=== PATIENT | male | born 2000 | race African-American/Black ===

== ENCOUNTER 2022-11-12 21:31 | Emergency (ER) | payer BC ==
[~2022-11-12] VITALS: Ht 182.9 cm; Wt 91.0 kg
[2022-11-12 21:48] VITALS: O2SAT 98
[2022-11-12 22:52] LABS: BASOPHILS % 0.9 % (0.0-2.0); EOSINOPHILS % 2.6 % (0.0-5.0); HEMATOCRIT. 47.8 % (42.0-52.0); HEMOGLOBIN. 16.1 g/dL (14.0-18.0); LYMPHOCYTES % 43.9 % (20.0-50.0); MEAN CORPUSCULAR HEMOGLOBIN 29.5 pg (28.0-32.0); MEAN CORPUSCULAR HGB CONC 33.6 g/dL (31.0-37.0); MEAN PLATELET VOLUME 8.7 fl (7.4-10.4); MONOCYTES % 10.5 % (2.0-8.0); NEUTROPHILS % 42.1 % (40.0-76.0); PLATELET 268 x1000/uL (130-400); RED BLOOD CELL COUNT 5.44 mill/uL (4.7-6.1); RED CELL DISTRIBUTION WIDTH 13.9 % (11.6-14.6); WHITE BLOOD COUNT 6.6 x1000/uL (4.5-11.0)
[2022-11-12 23:02] LABS: CALCIUM 8.7 mg/dL (8.5-10.1); CHLORIDE 109 mEq/L (98-107); INDEX HEMOLYSI 1 (1-3); INDEX ICTERIC 1 (1-4); INDEX LIPEMIC 1 (1-3); POTASSIUM 3.4 mEq/L (3.5-5.1); SODIUM 137 mEq/L (136-145)
[2022-11-12 23:10] LABS: ALANINE AMINOTRANSFERASE 31 IU/L (13-61); ALBUMIN 4.2 g/dL (3.4-5.0); ASPARTATE AMINOTRANSFERASE 23 IU/L (15-37); BILIRUBIN TOTAL 1.2 mg/dL (0.1-1.0); CARBON DIOXIDE 26 mEq/L (21-32); CREATINE KINASE 602 IU/L (39-308); CREATININE 1.4 mg/dL (0.6-1.3); GLUCOSE 101 mg/dL (70-105); PROTEIN TOTAL 8.3 g/dL (6.0-8.3); TROPONIN I HIGH SENSITIVITY 10 ng/L (<78); UREA NITROGEN BLOOD 16 mg/dL (7-21)
[2022-11-12] MEDS: SODIUM CHLORIDE 0.9% 1,000 ML IV NR (23:49)
[2022-11-13] MEDS: SODIUM CHLORIDE 0.9% 1,000 ML IV NR (00:31)
[2022-11-13 01:23] VITALS: BP 128/70; PULSE 68; RESP 16; TEMP 98.6
== END 2022-11-13 01:24 | disposition home or self-care (01) ==
LOC: ER 21:31
DX: M62.82 Rhabdomyolysis (principal); R53.1 Weakness; F15.10 Other stimulant abuse, uncomplicated
CPT/HCPCS: 36415; 80053; 82550; 84484; 85025; 93005; 96360; 99284